=== PATIENT | male | born 1955 | race Two or more races ===

== ENCOUNTER 2017-05-02 19:20 | Inpatient (IN) | payer OTHER ==
[~2017-05-02] VITALS: Ht 172.7 cm; Wt 78.6 kg
[2017-05-02 21:14] LABS: Albumin 2.7 g/dL (3.4-5.0); BUN/Creatinine Ratio 17.1; Bilirubin, Total 0.3 mg/dL (0.2-1.0); Calcium 8.8 mg/dL (8.5-10.1); Total Protein 8.5 g/dL (6.4-8.2)
[2017-05-02 21:16] LABS: Lymphocytes % (auto) 13.8 % (10.0-50.0); Neutrophils % (auto) 72.9 % (37.0-80.0); White Blood Cell 13.3 10^3/uL (4.4-10.8)
[2017-05-02 21:17] LABS: Basophils % (auto) 2.3 % (0.0-2.0); Eosinophils # (auto) 0.1 uL; Lymphocytes # (auto) 1.8 uL; Monocytes # (auto) 1.3 uL; Neutrophils # (auto) 9.7 uL
[2017-05-02 21:18] LABS: Basophils # (auto) 0.3 uL; Hematocrit 37.7 % (41.0-53.0); Mean Corpuscular Hemoglobin 25.7 pg (28.0-32.0); Mean Corpuscular Hgb Conc. 31.9 g/dL (32.0-36.0); Mean Corpuscular Volume 80.5 fL (80.0-100.0); Platelet Count (auto) 545 10^3/uL (140-450); Red Blood Cells 4.68 10^6/uL (4.5-5.90); Red Cell Distribution Width 13.7 % (11.8-14.3)
[2017-05-02] MEDS ORDERED: IOHEXOL 350 MG/ML 100ML IJ ONE (22:56)
[2017-05-02 23:29] VITALS: BP 126/72
[2017-05-02] MEDS ORDERED: CLINDAMYCIN 600MG IV 50 ML IV ONE (23:30)
[2017-05-02 23:39] LABS: INR 0.99 (0.9-1.15); Partial Thromboplastin Time 26.2 sec (22.64-33.71); Prothrombin Time 10.8 sec (9.37-12.3)
[2017-05-03] VITALS (7 sets, daily range): BP systolic 113–130; BP diastolic 74–81
[2017-05-03] MEDS: LEVOFLOXACIN 500MG 100 ML IV SCH ×2 (00:38→23:32)
[2017-05-03 04:10] LABS: Urine Bacteria NONE SEEN /hpf (None Seen); Urine Blood Negative /uL (Negative); Urine Specific Gravity 1.045 (1.001-1.035); Urine WBC <1 /hpf (0 - 3)
[2017-05-03 04:31] LABS: Alcohol, Urine < 3.0 mg/dL (0-5); Amphetamine Screen, Urine NEGATIVE (NEGATIVE); Barbiturate Scree,Urine NEGATIVE (NEGATIVE); Benzodiazephine Screen, Urine NEGATIVE (NEGATIVE); Cannabinoid Screen, Urine NEGATIVE (NEGATIVE); Cocaine Screen, Urine NEGATIVE (NEGATIVE); Opiate Scree,Urine NEGATIVE (NEGATIVE); Phencyclidine Screen, Urine NEGATIVE (NEGATIVE)
[2017-05-03] MEDS ORDERED: LEVAAER IN (06:00)
[2017-05-03] MEDS: CLINDAMYCIN 600MG IV 50 ML IV SCH ×3 (06:46→20:29)
[2017-05-03] MEDS: ALBUTEROL SULF 2.5 MG/0.5ML(0.5%) NEB SOLN NEB SCH ×2 (09:40→20:30)
[2017-05-03 10:44] LABS: Albumin 2.9 g/dL (3.4-5.0); BUN/Creatinine Ratio 12.7; Bilirubin, Total 0.5 mg/dL (0.2-1.0); Calcium 9.5 mg/dL (8.5-10.1); Potassium 4.8 mmol/L (3.5-5.1); Total Protein 9.2 g/dL (6.4-8.2)
[2017-05-03 10:50] LABS: INR 1.05 (0.9-1.15); Partial Thromboplastin Time 31.7 sec (22.64-33.71); Prothrombin Time 11.5 sec (9.37-12.3)
[2017-05-03] MEDS: ENOXAPARIN SOD 100 MG/1 ML SYRINGE SC SCH ×2 (12:59→20:29)
[2017-05-03] MEDS ORDERED: WARFARIN SODIUM 2.5 MG TAB PO ONE (17:00)
[2017-05-03] MEDS ORDERED: ALBUTEROL SULF 2.5 MG/0.5ML(0.5%) NEB SOLN ONE (17:55)
[2017-05-04] MEDS: CLINDAMYCIN 600MG IV 50 ML IV SCH ×3 (05:00→23:04)
[2017-05-04 05:19] VITALS: BP 122/77
[2017-05-04 06:43] LABS: INR 1.07 (0.9-1.15); Partial Thromboplastin Time 36.9 sec (22.64-33.71); Prothrombin Time 11.7 sec (9.37-12.3)
[2017-05-04 06:51] LABS: Albumin 2.7 g/dL (3.4-5.0); BUN/Creatinine Ratio 16.7; Calcium 9.4 mg/dL (8.5-10.1); Potassium 4.7 mmol/L (3.5-5.1)
[2017-05-04 06:54] LABS: Bilirubin, Total 0.4 mg/dL (0.2-1.0); Total Protein 8.6 g/dL (6.4-8.2)
[2017-05-04] MEDS ORDERED: GASTROGRAFIN 30 ML SOL ONE (06:57)
[2017-05-04] MEDS ORDERED: IOHEXOL 300 MG/ML 100ML BOTTLE IJ ONE (06:57)
[2017-05-04] MEDS: ALBUTEROL SULF 2.5 MG/0.5ML(0.5%) NEB SOLN NEB SCH ×2 (07:11→21:02)
[2017-05-04 08:00] VITALS: BP 120/80
[2017-05-04 09:06] VITALS: BP 120/80
[2017-05-04] MEDS: ENOXAPARIN SOD 100 MG/1 ML SYRINGE SC SCH (10:47)
[2017-05-04 13:00] VITALS: BP 116/72
[2017-05-04] MEDS: guaiFENesin-COD 10 ML UD PO PRN ×2 (14:49→20:46)
[2017-05-04 16:46] VITALS: BP 118/72
[2017-05-04] MEDS ORDERED: WARFARIN SODIUM 2.5 MG TAB PO ONE (17:00)
[2017-05-04] MEDS: LEVOFLOXACIN 500MG 100 ML IV SCH (20:33)
[2017-05-04] MEDS: ENOXAPARIN SOD 80 MG/0.8ML SYRINGE SC SCH (20:34)
[2017-05-04 22:00] VITALS: BP 118/73
[2017-05-05 05:51] VITALS: BP 123/68
[2017-05-05] MEDS: CLINDAMYCIN 600MG IV 50 ML IV SCH ×3 (05:51→23:02)
[2017-05-05 06:28] LABS: Basophils # (auto) 0.1 uL; Basophils % (auto) 0.9 % (0.0-2.0); Monocytes # (auto) 1.1 uL
[2017-05-05 06:31] LABS: Eosinophils # (auto) 0.1 uL; Eosinophils % (auto) 0.8 % (0.0-7.0); Hemoglobin 12.8 g/dL (13.5-17.5); Lymphocytes # (auto) 1.6 uL; Lymphocytes % (auto) 13.1 % (10.0-50.0); Mean Corpuscular Hemoglobin 26.4 pg (28.0-32.0); Mean Corpuscular Hgb Conc. 32.9 g/dL (32.0-36.0); Mean Corpuscular Volume 80.4 fL (80.0-100.0); Monocytes % (auto) 8.9 % (0.0-12.0); Neutrophils % (auto) 76.3 % (37.0-80.0); Platelet Count (auto) 509 10^3/uL (140-450); Red Blood Cells 4.85 10^6/uL (4.5-5.90); Red Cell Distribution Width 13.6 % (11.8-14.3); White Blood Cell 11.8 10^3/uL (4.4-10.8)
[2017-05-05 06:59] LABS: INR 1.36 (0.9-1.15); Partial Thromboplastin Time 39.9 sec (22.64-33.71); Prothrombin Time 14.9 sec (9.37-12.3)
[2017-05-05 08:00] VITALS: BP 115/74
[2017-05-05] MEDS: ALBUTEROL SULF 2.5 MG/0.5ML(0.5%) NEB SOLN NEB SCH ×2 (08:05→23:12)
[2017-05-05 09:24] VITALS: BP 115/74
[2017-05-05] MEDS: ENOXAPARIN SOD 80 MG/0.8ML SYRINGE SC SCH ×2 (10:42→23:02)
[2017-05-05 12:04] VITALS: BP 118/77
[2017-05-05 16:40] VITALS: BP 138/80
[2017-05-05] MEDS ORDERED: WARFARIN SODIUM 5 MG TAB PO ONE (17:00)
[2017-05-05] MEDS ORDERED: ALBUTEROL SULF 2.5 MG/0.5ML(0.5%) NEB SOLN ONE (22:47)
[2017-05-05 23:36] VITALS: BP 128/79
[2017-05-06] VITALS (8 sets, daily range): BP systolic 120–131; BP diastolic 67–85
[2017-05-06] MEDS: LEVOFLOXACIN 500MG 100 ML IV SCH (01:09)
[2017-05-06] MEDS: ALBUTEROL SULF 2.5 MG/0.5ML(0.5%) NEB SOLN NEB SCH ×2 (06:25→22:16)
[2017-05-06] MEDS: CLINDAMYCIN 600MG IV 50 ML IV SCH ×3 (06:40→21:45)
[2017-05-06 07:08] LABS: Albumin 2.5 g/dL (3.4-5.0); BUN/Creatinine Ratio 18.2; Bilirubin, Total 0.3 mg/dL (0.2-1.0); Calcium 8.8 mg/dL (8.5-10.1); Potassium 4.4 mmol/L (3.5-5.1); Total Protein 8.1 g/dL (6.4-8.2)
[2017-05-06 07:09] LABS: INR 1.83 (0.9-1.15); Partial Thromboplastin Time 47.6 sec (22.64-33.71); Prothrombin Time 20.1 sec (9.37-12.3)
[2017-05-06] MEDS: ENOXAPARIN SOD 80 MG/0.8ML SYRINGE SC SCH ×2 (10:35→21:45)
[2017-05-06] MEDS: PROMETHAZINE W/CODEINE 5 ML ORAL SYRUP PO PRN (16:04)
[2017-05-06] MEDS ORDERED: WARFARIN SODIUM 5 MG TAB PO ONE (17:00)
[2017-05-07] VITALS (7 sets, daily range): BP systolic 118–127; BP diastolic 75–82
[2017-05-07] MEDS: LEVOFLOXACIN 500MG 100 ML IV SCH (00:01)
[2017-05-07] MEDS ORDERED: ALBUTEROL SULF 2.5 MG/0.5ML(0.5%) NEB SOLN ONE ×2 (05:33→13:32)
[2017-05-07] MEDS: CLINDAMYCIN 600MG IV 50 ML IV SCH ×3 (06:01→21:50)
[2017-05-07 07:08] LABS: INR 1.87 (0.9-1.15); Prothrombin Time 20.5 sec (9.37-12.3)
[2017-05-07 07:47] LABS: Albumin 2.6 g/dL (3.4-5.0); BUN/Creatinine Ratio 17.4; Calcium 9.4 mg/dL (8.5-10.1); Potassium 4.5 mmol/L (3.5-5.1)
[2017-05-07 08:03] LABS: Bilirubin, Total 0.2 mg/dL (0.2-1.0); Total Protein 8.4 g/dL (6.4-8.2)
[2017-05-07] MEDS: ENOXAPARIN SOD 80 MG/0.8ML SYRINGE SC SCH (09:31)
[2017-05-07] MEDS: guaiFENesin-COD 10 ML UD PO PRN ×2 (09:41→20:16)
[2017-05-07] MEDS: ALBUTEROL SULF 2.5 MG/0.5ML(0.5%) NEB SOLN NEB SCH (14:12)
[2017-05-07] MEDS ORDERED: WARFARIN SODIUM 5 MG TAB PO ONE (17:00)
[2017-05-08] VITALS (7 sets, daily range): BP systolic 115–128; BP diastolic 70–77
[2017-05-08] MEDS: LEVOFLOXACIN 500MG 100 ML IV SCH ×2 (02:01→23:49)
[2017-05-08] MEDS: CLINDAMYCIN 600MG IV 50 ML IV SCH ×3 (05:56→21:36)
[2017-05-08 06:58] LABS: INR 1.83 (0.9-1.15); Partial Thromboplastin Time 47.7 sec (22.64-33.71); Prothrombin Time 20.1 sec (9.37-12.3)
[2017-05-08 07:01] LABS: Potassium 4.1 mmol/L (3.5-5.1)
[2017-05-08 07:06] LABS: Albumin 2.5 g/dL (3.4-5.0); BUN/Creatinine Ratio 18.8; Calcium 9.1 mg/dL (8.5-10.1)
[2017-05-08 07:09] LABS: Bilirubin, Total 0.3 mg/dL (0.2-1.0)
[2017-05-08] MEDS ORDERED: ALBUTEROL SULF 2.5 MG/0.5ML(0.5%) NEB SOLN ONE ×2 (09:57→21:54)
[2017-05-08] MEDS: ALBUTEROL SULF 2.5 MG/0.5ML(0.5%) NEB SOLN NEB SCH ×2 (10:14→22:58)
[2017-05-08] MEDS: PROMETHAZINE W/CODEINE 5 ML ORAL SYRUP PO PRN (14:07)
[2017-05-08] MEDS ORDERED: WARFARIN SODIUM 2 MG TAB PO ONE (17:00)
[2017-05-08] MEDS: guaiFENesin-COD 10 ML UD PO PRN (20:29)
[2017-05-09 05:00] VITALS: BP 134/76
[2017-05-09] MEDS: CLINDAMYCIN 600MG IV 50 ML IV SCH ×2 (05:30→14:56)
[2017-05-09 06:11] LABS: INR 1.95 (0.9-1.15); Prothrombin Time 21.4 sec (9.37-12.3)
[2017-05-09 08:00] VITALS: BP 113/72
[2017-05-09 08:58] VITALS: BP 113/72
[2017-05-09] MEDS ORDERED: ALBUTEROL SULF 2.5 MG/0.5ML(0.5%) NEB SOLN ONE ×2 (09:47→17:48)
[2017-05-09] MEDS: ALBUTEROL SULF 2.5 MG/0.5ML(0.5%) NEB SOLN NEB SCH ×2 (10:00→19:22)
[2017-05-09] MEDS ORDERED: WARPRX PO (12:50)
[2017-05-09 13:00] VITALS: BP 110/63
[2017-05-09] MEDS: PROMETHAZINE W/CODEINE 5 ML ORAL SYRUP PO PRN (15:03)
[2017-05-09 17:00] VITALS: BP 124/68
[2017-05-09] MEDS ORDERED: WARFARIN SODIUM 2 MG TAB PO ONE (17:00)
== END 2017-05-09 20:00 | DRG 686 ==
LOC: ER 20:34 → EEVIPCON 20:35 → OVERFLOW 20:35 → EAST 05-03 03:06
PROVIDERS: ADMIT Internal Medicine; ATTEND Internal Medicine
DX: C64.2 Malignant neoplasm of left kidney, except renal pelvis (principal); I26.99 Other pulmonary embolism without acute cor pulmonale; R04.2 Hemoptysis; I82.3 Embolism and thrombosis of renal vein; C78.02 Secondary malignant neoplasm of left lung; C78.01 Secondary malignant neoplasm of right lung; C41.2 Malignant neoplasm of vertebral column; Z79.01 Long term (current) use of anticoagulants; R59.0 Localized enlarged lymph nodes; R63.4 Abnormal weight loss; B19.20 Unspecified viral hepatitis C without hepatic coma; F11.10 Opioid abuse, uncomplicated; F02.80 Dementia in other diseases classified elsewhere, unspecified severity, without behavioral disturbance, psychotic disturbance, mood disturbance, and anxiety; G30.9 Alzheimer's disease, unspecified; Z80.0 Family history of malignant neoplasm of digestive organs; Z80.3 Family history of malignant neoplasm of breast; Z82.0 Family history of epilepsy and other diseases of the nervous system; Z90.49 Acquired absence of other specified parts of digestive tract; Z68.26 Body mass index [BMI] 26.0-26.9, adult; Z88.0 Allergy status to penicillin; Z88.1 Allergy status to other antibiotic agents; Z79.899 Other long term (current) drug therapy; Z87.891 Personal history of nicotine dependence; Z71.89 Other specified counseling
CPT/HCPCS: 36415; 70470; 71045; 71260; 74177; 78306; 80053; 80307; 81001; 85025; 85610; 85730; 93970; 94640; 96365; 96367; J1956; J3490